=== PATIENT | male | born 1990 | race Caucasian/White ===

== ENCOUNTER 2018-12-24 20:22 | Emergency (ER) | payer OTHER ==
[~2018-12-24] VITALS: Ht 170.2 cm; Wt 68.0 kg
--- NOTE | 2018-12-24 20:22 | NUR ---
PT SALVADOR ALS. TAKEN TO BED 4
[2018-12-24 20:23] VITALS: BP 124/93
--- NOTE | 2018-12-24 20:33 | NUR ---
28 Y MALE BIBA FOR ETOH. EMS STATES PT WAS FOUND SLEEPING IN FRONT OF SOMEONE'S HOME, REPORTS HE DRANK 1/2 BOTTLE OF [place]. UNSTEADY GAIT. CLEAR SPEECH. PT COOPERATIVE. PUPILS EQUAL AND REACTIVE TO LIGHT. [id number]. VSS AT THIS TIME. BED IS DOWN, LOCKED, BED RAIL X 1, ERMD TO SEE PT. HX NONE
--- NOTE | 2018-12-24 20:40 | NUR ---
Pt got up from gurney bed and urinated all over the floor.
--- NOTE | 2018-12-24 21:05 | NUR ---
REPORT GIVEN TO ANUJ CAICEDO
--- NOTE | 2018-12-24 22:18 | NUR ---
PATIENT SLEEPING IN BED AT THIS TIME, NO SIGNS OF DISTRESS.
--- NOTE | 2018-12-24 22:38 | NUR ---
Dr. Green evaluating patient at bedside.
--- NOTE | 2018-12-24 22:45 | NUR ---
PATIENT SUCCESSFULLY PASSED ROAD TEST. ER MD MADE AWARE. PT EXPRESSING WISH TO BE DISCHARGED.
[2018-12-24 22:54] VITALS: BP 128/85
--- NOTE | 2018-12-24 22:54 | NUR ---
Patient discharged with v/s stable. Written and verbal after care instructions given and explained. Patient verbalized understanding. Ambulatory with steady gait. All questions addressed prior to discharge. Advised to follow up with PMD.
== END 2018-12-24 22:54 | disposition home or self-care (01) ==
LOC: MED 20:22
DX: F10.129 Alcohol abuse with intoxication, unspecified (principal); F17.200 Nicotine dependence, unspecified, uncomplicated
CPT/HCPCS: 99281; 99283